=== PATIENT | female | born 1965 | race Caucasian/White ===

== ENCOUNTER 2018-09-06 14:54 | Emergency (ER) | payer OTHER ==
[2018-09-06] MEDS: ONDANSETRON (ODT) 4 MG TAB ODT (15:59)
== END 2018-09-06 15:55 | disposition home or self-care (01) ==
LOC: E/R 14:54
DX: F10.230 Alcohol dependence with withdrawal, uncomplicated (principal); I10 Essential (primary) hypertension; F17.210 Nicotine dependence, cigarettes, uncomplicated
CPT/HCPCS: 99283; Z7502